=== PATIENT | male | born 1955 ===

== ENCOUNTER 2016-12-30 10:11 | Emergency (ER) | payer BC ==
[2016-12-30 10:21] VITALS: BP 160/119
[2016-12-30] MEDS ORDERED: Albuterol/Ipratropium 3.0-0.5 MG/3 ML Neb Soln NEB ONE ×2 (10:32→12:20)
--- NOTE | 2016-12-30 10:33 | EDM.PDOC ---
ED HPI GENERAL MEDICAL PROBLEM - General Chief Complaint: Respiratory Problem Stated Complaint: [facility] Time Seen by Provider: 12/30/16 10:23 - History of Present Illness INITIAL COMMENTS - FREE TEXT/NARRATIVE: 61-year-old male presents emergency room with shortness of breath. Patient was doing fine yesterday this morning he developed some shortness of breath he had some mild chest discomfort he describes as a fluttery sensation in his chest on the left side just resolved on its own. In route from [facility] in the ambulance he was given an aspirin he seemed to do better on oxygen however he was satting well 96 -97% on room air. Yesterday the patient was exposed to some fine dust and wonders if this could be an irritant. He has not had a worsening cough. He has not had any fevers or chills. The patient smokes one pack a day and is a long-term smoker. He's got a typical smoker's cough this is not worsening. At the time of my evaluation he feels like he just can't quite catch his air really no significant chest discomfort. Past medical history: Questionable hepatitis C he had a positive test further testing was negative he has had no treatment for this. Family history: Father with atherosclerotic cardiovascular disease mother with hypertension. 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 Other Treatments RETAIL BANKING MANAGER: 325mg ASA Left Chest Pain Score (Numeric/FACES): 2 - Related Data Allergies Allergy/AdvReac Type Severity Reaction Status Date / Time No Known Allergies Allergy Verified 12/30/16 10:21 Home Meds: Home Meds Prednisone [IMW: predniSONE] 60 mg PO WITHBREAKFAST #20 tab 12/30/16 [Rx] Past Medical History HEENT History: Reports: Impaired Vision Other HEENT History: wears corrective lenses Cardiovascular History: Reports: Hypertension - Infectious Disease History Infectious Disease History: Reports: Hepatitis C Other Infectious Disease History: Patient has history of Hep C, states he has since tested negative for Hep C - Past Surgical History HEENT Surgical History: Reports: None Musculoskeletal Surgical History: Reports: Arthroscopic Knee Social & Family History - Tobacco Use Smoking Status *Q: Current Every Day Smoker Years of Tobacco use: 40 Packs/Tins Daily: 1 Used Tobacco, but Quit: No Second Hand Smoke Exposure: No - Caffeine Use Caffeine Use: Reports: Coffee - Recreational Drug Use Recreational Drug Use: No ED ROS GENERAL - Review of Systems Review Of Systems: See Below Constitutional: Reports: No Symptoms HEENT: Reports: No Symptoms Respiratory: Reports: Shortness of Breath, Wheezing. Denies: Cough, Sputum, Hemoptysis Cardiovascular: Reports: Chest Pain, Dyspnea on Exertion. Denies: Blood Pressure Problem, Edema, Lightheadedness, Palpitations, Syncope GI/Abdominal: Reports: No Symptoms : Reports: No Symptoms Neurological: Reports: No Symptoms ED EXAM, GENERAL - Physical Exam Exam: See Below Exam Limited By: No Limitations General Appearance: Alert, No Apparent Distress Eye Exam: Bilateral Eye: EOMI, Normal Inspection, PERRL Ears: Normal External Exam, Normal Canal, Hearing Grossly Normal, Normal TMs Throat/Mouth: Normal Inspection, Normal Lips, Normal Teeth, Normal Oropharynx Head: Atraumatic, Normocephalic Neck: Normal Inspection, Supple, Non-Tender. No: Lymphadenopathy (L), Lymphadenopathy (R) Respiratory/Chest: No Respiratory Distress, Other (He has a few end expiratory wheezes and mild bibasilar crackles) Cardiovascular: Regular Rate, Rhythm, No Edema, No Murmur GI/Abdominal: Normal Bowel Sounds, Soft, Non-Tender Extremities: Normal Inspection, No Pedal Edema Neurological: Alert, Oriented, Normal Cognition Psychiatric: Normal Affect, Normal Mood Skin Exam: Warm, Dry, Intact Course - Vital Signs Last Recorded V/S: Last Vital Signs Temp 36.3 C 12/30/16 10:17 Pulse 66 12/30/16 10:17 Resp 19 12/30/16 10:17 BP 160/119 H 12/30/16 10:17 Pulse Ox 100 12/30/16 12:49 - Orders/Labs/Meds Orders: Active Orders 24 hr Category Date Time Status EKG 12 Lead [EKG Documentation Completion] [RC] STAT Care 12/30/16 10:22 Active RT Aerosol Therapy [RC] ASDIRECTED Care 12/30/16 10:33 Active RT Aerosol Therapy [RC] ASDIRECTED Care 12/30/16 12:20 Active RT Post Treatment Assessment [RC] Click To Edit Care 12/30/16 13:29 Ordered RT Pre-Treatment Assessment [RC] Click To Edit Care 12/30/16 13:29 Ordered Lactated Ringers [Ringers, Lactated] 1,000 ml Med 12/30/16 11:45 Active IV ASDIRECTED Sodium Chloride 0.9% [Normal Saline] 100 ml Med 12/30/16 11:45 Active IV ASDIRECTED Sodium Chloride 0.9% [Saline Flush] Med 12/30/16 11:43 Active 10 ml FLUSH ONETIME PRN Medication Orders Lactated Ringer's (Ringers, Lactated) 1,000 mls @ 125 mls/hr IV ASDIRECTED ADRIANA Last Admin: 12/30/16 12:20 Dose: 125 mls/hr Sodium Chloride (Normal Saline) 100 mls @ 80 mls/hr IV ASDIRECTED ADRIANA Last Admin: 12/30/16 12:05 Dose: 40 mls/hr Sodium Chloride (Saline Flush) 10 ml FLUSH ONETIME PRN PRN Reason: IV FLUSH Last Admin: 12/30/16 12:06 Dose: 10 ml Labs: Laboratory Tests 12/30/16 12/30/16 12/30/16 Range/Units 10:43 10:43 10:43 WBC 9.73 H (4.23-9.07) K/mm3 RBC 5.16 (4.63-6.08) M/mm3 Hgb 15.9 (13.7-17.5) gm/L Hct 46.2 (40.1-51.0) % MCV 89.5 (79.0-92.2) fl MCH 30.8 (25.7-32.2) pg MCHC 34.4 (32.2-35.5) g/dl RDW Std Deviation 46.7 H (35.1-43.9) fL Plt Count 286 (163-337) K/mm3 MPV 9.6 (9.4-12.3) fl Neutrophils % (Manual) 67 H (40-60) % Band Neutrophils % 0 (0-10) % Lymphocytes % (Manual) 29 (20-40) % Atypical Lymphs % 0 % Monocytes % (Manual) 2 (2-10) % Eosinophils % (Manual) 2 (0.8-7.0) % Basophils % (Manual) 0 L (0.2-1.2) Platelet Estimate Adequate Plt Morphology Comment Normal RBC Morph Comment Normal PT 9.9 (8.0-13.0) SECONDS INR 0.91 APTT 28 (22-36) SECONDS Puncture Site ABG pH (7.35-7.45) ABG pCO2 (35.0-45.0) mmHg ABG pO2 (80.0-100.0) mmHg ABG HCO3 (22.0-26.0) meq/L ABG O2 Saturation (96.0-97.0) % ABG Base Excess (-2-2.0) A-a Gradient mmHg O2 Delivery Device FiO2 (21.00-100.00) % Sodium 140 (136-145) mEq/L Potassium 3.9 (3.5-5.1) mEq/L Chloride 105 (98-107) mEq/L Carbon Dioxide 25 (21-32) mEq/L Anion Gap 13.9 (5-15) BUN 18 (7-18) mg/dL Creatinine 1.0 (0.7-1.3) mg/dL Est Cr Clr Drug Dosing 65.78 mL/min Estimated GFR (MDRD) > 60 (>60) mL/min BUN/Creatinine Ratio 18.0 (14-18) Glucose 101 (74-106) mg/dL Calcium 9.3 (8.5-10.1) mg/dL Total Bilirubin 0.5 (0.2-1.0) mg/dL AST 18 (15-37) U/L ALT 25 (16-63) U/L Alkaline Phosphatase 109 (46-116) U/L Troponin I < 0.017 (0.00-0.056) ng/mL B-Natriuretic Peptide (0-100) pg/mL Total Protein 7.8 (6.4-8.2) g/dl Albumin 3.5 (3.4-5.0) g/dl Globulin 4.3 gm/dL Albumin/Globulin Ratio 0.8 L (1-2) 12/30/16 12/30/16 12/30/16 Range/Units 10:43 10:53 12:45 WBC (4.23-9.07) K/mm3 RBC (4.63-6.08) M/mm3 Hgb (13.7-17.5) gm/L Hct (40.1-51.0) % MCV (79.0-92.2) fl MCH (25.7-32.2) pg MCHC (32.2-35.5) g/dl RDW Std Deviation (35.1-43.9) fL Plt Count (163-337) K/mm3 MPV (9.4-12.3) fl Neutrophils % (Manual) (40-60) % Band Neutrophils % (0-10) % Lymphocytes % (Manual) (20-40) % Atypical Lymphs % % Monocytes % (Manual) (2-10) % Eosinophils % (Manual) (0.8-7.0) % Basophils % (Manual) (0.2-1.2) Platelet Estimate Plt Morphology Comment RBC Morph Comment PT (8.0-13.0) SECONDS INR APTT (22-36) SECONDS Puncture Site Rt radial ABG pH 7.43 (7.35-7.45) ABG pCO2 36.6 (35.0-45.0) mmHg ABG pO2 68.0 L (80.0-100.0) mmHg ABG HCO3 23.6 (22.0-26.0) meq/L ABG O2 Saturation 91.7 L (96.0-97.0) % ABG Base Excess 0.2 (-2-2.0) A-a Gradient 20 mmHg O2 Delivery Device Room air FiO2 21.00 (21.00-100.00) % Sodium (136-145) mEq/L Potassium (3.5-5.1) mEq/L Chloride (98-107) mEq/L Carbon Dioxide (21-32) mEq/L Anion Gap (5-15) BUN (7-18) mg/dL Creatinine (0.7-1.3) mg/dL Est Cr Clr Drug Dosing mL/min Estimated GFR (MDRD) (>60) mL/min BUN/Creatinine Ratio (14-18) Glucose (74-106) mg/dL Calcium (8.5-10.1) mg/dL Total Bilirubin (0.2-1.0) mg/dL AST (15-37) U/L ALT (16-63) U/L Alkaline Phosphatase (46-116) U/L Troponin I < 0.017 (0.00-0.056) ng/mL B-Natriuretic Peptide 58 (0-100) pg/mL Total Protein (6.4-8.2) g/dl Albumin (3.4-5.0) g/dl Globulin gm/dL Albumin/Globulin Ratio (1-2) Meds: Medications Generic Name Dose Route Start Last Admin Trade Name Freq PRN Reason Stop Dose Admin Lactated Ringer's 1,000 mls @ 125 mls/hr 12/30/16 11:45 12/30/16 12:20 Ringers, Lactated IV 125 mls/hr ASDIRECTED ADRIANA Administration Sodium Chloride 100 mls @ 80 mls/hr 12/30/16 11:45 12/30/16 12:05 Normal Saline IV 40 mls/hr ASDIRECTED ADRIANA Administration Sodium Chloride 10 ml 12/30/16 11:43 12/30/16 12:06 Saline Flush FLUSH 10 ml ONETIME PRN Administration IV FLUSH Discontinued Medications Generic Name Dose Route Start Last Admin Trade Name Freq PRN Reason Stop Dose Admin Albuterol 8.5 gm 12/30/16 13:29 Proventil Hfa INH 12/30/16 13:30 ONETIME ONE Albuterol/Ipratropium 3 ml 12/30/16 10:32 12/30/16 10:45 Duoneb 3.0-0.5 Mg/3 Ml NEB 12/30/16 10:33 3 ml ONETIME ONE Administration Albuterol/Ipratropium 3 ml 12/30/16 12:20 12/30/16 12:48 Duoneb 3.0-0.5 Mg/3 Ml NEB 12/30/16 12:21 3 ml ONETIME ONE Administration Lactated Ringer's 500 mls @ 999 mls/hr 12/30/16 11:34 12/30/16 11:40 Ringers, Lactated IV 12/30/16 12:04 999 mls/hr .BOLUS ONE Administration Iopamidol 100 ml 12/30/16 11:43 12/30/16 12:06 Isovue-370 (76%) IVPUSH 12/30/16 11:44 90 ml ONETIME ONE Administration Methylprednisolone Sodium Succinate 125 mg 12/30/16 11:37 12/30/16 11:45 Solu-Medrol IVPUSH 12/30/16 11:38 125 mg ONETIME ONE Administration - Re-Assessments/Exams Free Text/Narrative Re-Assessment/Exam: 12/30/16 12:21 Patient blood gases obtained with a pH 7.43 PCO2 of 36.6 PO2 is diminished at 68 , carboxyhemoglobin slightly elevated at 3.5 consistent with been smoker bicarbonate 23.6 base excess 0.2 chest x-ray portable negative labs nondiagnostic. Patient may have had a little bit of improvement with the DuoNeb this will be repeated he's received some Solu-Medrol we will check a chest CT. 12/30/16 13:30 Patient is doing better after the second nebulizer. No chest pain at this point and breathing much better. CT was done of the chest which does not show any acute cardiopulmonary changes it does show some diffuse atheromatous change within the thoracic aorta no aneurysm or dissection seen degenerative changes in the spine also noted. At this point patient be started on albuterol MDI and prednisone taper will follow-up in the clinic early this next week for recheck. Discussed treatment in detail with the patient he is comfortable with this and will follow-up as directed. Departure - Departure Time of Disposition: 13:31 Disposition: Home, Self-Care 01 Clinical Impression: Shortness of breath, Reactive airway disease - Discharge Information Prescriptions: Prednisone [IMW: predniSONE] 60 mg PO WITHBREAKFAST #20 tab Forms: ED Department Discharge Additional Instructions: Return to the emergency room with any questions problems worsening symptoms. Early next week for follow-up in the [facility]. You have been started on 2 medications to help her breathing the first one is prednisone at this is a short-term medication. He take 3 pills every morning for 3 days followed by 2 pills every morning for 3 days followed by one pill every morning for 3 days then one half pill every morning for 4 days. You have been given an albuterol inhaler here in the emergency room. Use 2 puffs every 4 hours while awake. - My Orders Last 24 Hours: My Active Orders 12/30/16 10:22 EKG 12 Lead [EKG Documentation Completion] [RC] STAT 12/30/16 10:33 RT Aerosol Therapy [RC] ASDIRECTED 12/30/16 11:43 Sodium Chloride 0.9% [Saline Flush] 10 ml FLUSH ONETIME PRN 12/30/16 11:45 Lactated Ringers [Ringers, Lactated] 1,000 ml IV ASDIRECTED Sodium Chloride 0.9% [Normal Saline] 100 ml IV ASDIRECTED 12/30/16 12:20 RT Aerosol Therapy [RC] ASDIRECTED 12/30/16 13:29 RT Post Treatment Assessment [RC] Click To Edit RT Pre-Treatment Assessment [RC] Click To Edit - Assessment/Plan Last 24 Hours: My Active Orders 12/30/16 10:22 EKG 12 Lead [EKG Documentation Completion] [RC] STAT 12/30/16 10:33 RT Aerosol Therapy [RC] ASDIRECTED 12/30/16 11:43 Sodium Chloride 0.9% [Saline Flush] 10 ml FLUSH ONETIME PRN 12/30/16 11:45 Lactated Ringers [Ringers, Lactated] 1,000 ml IV ASDIRECTED Sodium Chloride 0.9% [Normal Saline] 100 ml IV ASDIRECTED 12/30/16 12:20 RT Aerosol Therapy [RC] ASDIRECTED 12/30/16 13:29 RT Post Treatment Assessment [RC] Click To Edit RT Pre-Treatment Assessment [RC] Click To Edit
--- NOTE | 2016-12-30 11:15 | CR ---
Chest: Portable view of the chest was obtained. Comparison: Previous chest x-ray of 10/15/15. Heart size and mediastinum are normal. Lungs are clear. Bony structures are grossly intact. Impression: 1. Nothing acute is identified on portable chest x-ray. Diagnostic code #1
[2016-12-30] MEDS ORDERED: Lactated Ringers 500 ML IV ONE (11:34)
[2016-12-30] MEDS ORDERED: methylPREDNISolone Sodium Succinate 125 MG/2 ML SDV IVPUSH ONE (11:37)
[2016-12-30] MEDS ORDERED: Sodium Chloride 0.9% 10 ML Syringe FLUSH PRN (11:43)
[2016-12-30] MEDS ORDERED: Iopamidol 755 Mg/ML 100 ML Bottle IVPUSH ONE (11:43)
[2016-12-30] MEDS ORDERED: Lactated Ringers 1,000 ML IV SCH (11:45)
[2016-12-30] MEDS ORDERED: Sodium Chloride 0.9% 100 ML IV SCH (11:45)
--- NOTE | 2016-12-30 12:56 | CT ---
CT chest Technique: Multiple axial sections through the chest were obtained. Intravenous contrast was utilized. Comparison: Previous chest x-ray of 10/15/15 and 12/30/16, no previous chest CT. Findings: Atherosclerotic changes are seen within the thoracic aorta. Slightly ectatic ascending aorta is seen. No aneurysm or dissection is seen within the aorta. Pulmonary arteries are fairly well-opacified showing no discrete filling defects of pulmonary embolism within the main pulmonary arteries or segmental pulmonary arteries. No mediastinal mass or adenopathy is seen. No coronary artery calcification is seen. Small portion of the visualized upper abdominal structures are within normal limits. Lungs are clear. No pleural effusions, pneumothorax or parenchymal densities are seen. Bone window settings were reviewed showing minimal degenerative spurring within the mid and lower thoracic spine. Impression: 1. Diffuse atheromatous change within the thoracic aorta. No aneurysm or aortic dissection is seen. 2. Incidental degenerative spurring within the spine. 3. No additional abnormality seen on CT study of the chest. Diagnostic code #2
[2016-12-30] MEDS ORDERED: Albuterol 6.7 GM Inhaler INH ONE (13:29)
== END 2016-12-30 13:57 | disposition home or self-care (01) ==
LOC: JD.ED 10:11
DX: J45.909 Unspecified asthma, uncomplicated (principal); I10 Essential (primary) hypertension; F17.210 Nicotine dependence, cigarettes, uncomplicated
CPT/HCPCS: 36415; 36600; 71010; 71260; 80053; 82803; 83880; 84484; 85025; 85610; 85730; 93005; 94640; 94664; 96361; 96374; 99285; A9270; J2930; J7030; J7050; J7120; Q9967; 99284